=== PATIENT | male | born 1940 | race Caucasian/White ===

== ENCOUNTER 2022-09-04 12:03 | Emergency (ER) | payer BC, OTHER ==
[~2022-09-04] VITALS: Ht 172.7 cm; Wt 86.0 kg
[2022-09-04] MEDS ORDERED: SODIUM CHLORIDE 0.9% 1,000 ML IVB ONE (12:30)
[2022-09-04] MEDS ORDERED: ONDANSETRON HCL 4 MG/2 ML VIAL IV ONE (12:30)
[2022-09-04 12:42] VITALS: BP 115/74
[2022-09-04 13:01] LABS: Basophils # (auto) 0 10 ^3/uL (0-0.2); Basophils % (auto) 0.1 % (0.0-2.0); Eosinophils # (auto) 0 10 ^3/uL (0-0.8); Eosinophils % (auto) 0.1 % (0.0-7.0); Hematocrit 44.3 % (41.0-53.0); Hemoglobin 15.2 g/dL (13.5-17.5); Lymphocytes # (auto) 0.4 10 ^3/uL (0.4-5.4); Lymphocytes % (auto) 3.9 % (10.0-50.0); Mean Corpuscular Hemoglobin 30.8 pg (28.0-32.0); Mean Corpuscular Hgb Conc. 34.3 g/dL (32.0-36.0); Mean Corpuscular Volume 89.7 fL (80.0-100.0); Monocytes % (auto) 9.9 % (0.0-12.0); Neutrophils # (auto) 8.6 10 ^3/uL (1.6-8.6); Nucleated Red Blood Cells % 0.1 %; Red Blood Cells 4.94 10^6/uL (4.5-5.90); Red Cell Distribution Width 14.4 % (11.8-14.3)
[2022-09-04 13:21] LABS: Potassium 4.5 mmol/L (3.5-5.1)
[2022-09-04 13:29] LABS: Albumin 2.7 g/dL (3.4-5.0); BUN/Creatinine Ratio 22.5 (10.0-20.0); Bilirubin, Total 1.6 mg/dL (0.2-1.0); Calcium 8.4 mg/dL (8.5-10.1); Total Protein 5.8 g/dL (6.4-8.2)
== END 2022-09-04 20:10 | disposition home or self-care (01) ==
LOC: ER 12:03 → EDBD 12:03 → EDSEX 12:03 → ER 20:02
DX: R74.8 Abnormal levels of other serum enzymes (principal); R07.89 Other chest pain; Z88.8 Allergy status to other drugs, medicaments and biological substances
CPT/HCPCS: 36415; 71045; 76705; 80053; 83690; 83880; 84484; 85025; 93005; 96361; 96374; 99285; J2405; J7030